=== PATIENT | female | born 1950 | race African-American/Black ===

== ENCOUNTER 2021-06-05 18:46 | Observation (INO) | payer OTHER, SELFPAY ==
[2021-06-05] VITALS (7 sets, daily range): BP systolic 151–173; BP diastolic 67–100; PULSE 90–103; RESP 21–38; TEMP 36; O2SAT 92–99
--- NOTE | ~2021-06-05 | CT_ITS ---
EXAMINATION: CTA chest PE protocol DATE: 06/05/2021 20:55 INDICATION: Shortness of breath and hypoxia TECHNIQUE: Computed tomography (CT) pulmonary angiogram of the chest was performed with 100 mL Omnipa que-350 intravenous contrast. Additional 3D reconstructions utilizing coronal maximum intensity proje ction (MIP) were performed. Automated exposure control and iterative reconstruction technique were em ployed. The dose-length product was 487.97 mGy-cm. COMPARISON: None FINDINGS: Excellent contrast opacification of the pulmonary arteries. There is mild streak artifact from dense contrast in the superior vena cava and right atrium. Moderate scattered respiratory motion artifact m ost prominent at the lung bases where it decreases sensitivity and specificity in the segmental and s ubsegmental pulmonary arteries. No definitive pulmonary embolism identified. There is a moderate-size d posterior layering left pleural effusion with dependent compressive atelectasis in the left lower l obe and additional scattered discoid atelectasis in the left lower lobe and lingula. No other opaciti es to suggest pneumonia. No pulmonary edema or pneumothorax. Borderline heart size. No pericardial ef fusion. Thoracic aorta is normal in caliber with no dissection. Calcified left hilar and mediastinal lymph nodes along with multiple splenic and hepatic calcifications, all consistent with old granuloma tous disease. No pathologically enlarged thoracic lymphadenopathy. Small sliding-type hiatal hernia. Moderate amount of ascites and prominent mesenteric edema throughout the visualized upper abdomen. A couple 3 mm nonobstructing stones in a middle calyx of the right kidney. 1 cm indeterminate sclerotic lesion at T10. Smaller and more densely sclerotic likely bone island at the right glenoid neck. IMPRESSION: 1. No pulmonary embolism. Sensitivity moderately decreased in some of the basilar segmental and subse gmental pulmonary arteries due to respiratory motion. 2. Moderate-sized left pleural effusion with associated atelectasis in the left lower lobe and lingul a. 3. Mesenteric edema and moderate amount of ascites in the upper abdomen. 4. Nonobstructing right nephrolithiasis. 5. Small sliding-type hiatal hernia. 6. Instrumented 1 cm sclerotic lesion at T10 which does raise some concern for metastatic disease alt angela no other suspicious sclerotic lesions are identified. Consider further evaluation with bone sca n particularly if there is history of prior malignancy. Reviewed, dictated and finalized at location A. CREWMAN IMPRESSION: 1. No pulmonary embolism. Sensitivity moderately decreased in some of the basil ar segmental and subsegmental pulmonary arteries due to respiratory motion. 2. Moderate-sized left pleural effusion with associated atelectasis in the left lower lobe and lingula. 3. Mesenteric edema and moderate amount of ascites in the upper abdomen. 4. Nonobstructing right nephrolithiasis. 5. Small sliding-type hiatal hernia. 6. Instrumented 1 cm sclerotic lesion at T10 which does raise some concern for metastatic disease although no other suspicious sclerotic lesions are identifie d. Consider further evaluation with bone scan particularly if there is history of prior malignancy.
--- NOTE | ~2021-06-05 | XR_ITS ---
EXAMINATION: XR chest 1V portable DATE: 06/05/2021 19:29 INDICATION: Weakness and shortness of breath TECHNIQUE: frontal view of the chest was obtained. COMPARISON: None FINDINGS: Small lung volumes. Asymmetric increased lucency of the right lung relative to the left. Streaky opac ities at the left lower lung zone. No pneumothorax or definitive pleural effusion. Heart size is norm al. Nonspecific widening of the central mediastinum. Surgical clips projecting over the left breast. The cardiomediastinal silhouette is normal. Sclerotic bone island at the neck of the right glenoid. IMPRESSION: 1. Asymmetric lucency of the right lung relative to the left. This could be due to asymmetric positio n of the overlying breasts, posterior layering small left pleural effusion or right-sided pulmonary e mboli. 2. Enlargement of the central mediastinum which could be due to tortuous or aneurysmal thoracic aorta , enlargement of the central pulmonary arteries or lymphadenopathy. Consider contrast-enhanced chest CT for further evaluation of both this as well as the asymmetric lucency. 3. Left basilar opacities which could represent atelectasis and/or pneumonia. Reviewed, dictated and finalized at location A. ON RAILS ENGINEER IMPRESSION: 1. Asymmetric lucency of the right lung relative to the left. This could be due to asymmetric position of the overlying breasts, posterior layering small left pleural effusion or right-sided pulmonary emboli. 2. Enlargement of the central mediastinum which could be due to tortuous or ane urysmal thoracic aorta, enlargement of the central pulmonary arteries or lympha denopathy. Consider contrast-enhanced chest CT for further evaluation of both t his as well as the asymmetric lucency. 3. Left basilar opacities which could represent atelectasis and/or pneumonia.
--- NOTE | 2021-06-05 18:48 | ECG_ITS ---
Measurements Intervals [place] Rate: 105 P: 40 [place]: 127 QRS: -17 QRSD: 78 T: 24 QT: 347 QTc: 459 Interpretive Statements SINUS TACHYCARDIA WITH OCCASIONAL SUPRAVENTRICULAR PREMATURE COMPLEXES POSSIBLE LEFT ATRIAL ENLARGEMENT [-0.1mV P-WAVE IN V1/V2] LOW QRS VOLTAGE IN PRECORDIAL LEADS [QRS DEFLECTION < 1.0 mV IN CHEST LEADS] NONSPECIFIC T-WAVE ABNORMALITY ABNORMAL ECG NO PREVIOUS ECG AVAILABLE FOR COMPARISON Electronically Signed On 06-06-2021 7:11:19 MARINE UNDERWRITER by Galen Robles M.D.
--- NOTE | 2021-06-05 19:30 | PC.NURSE ---
Patient had a BM. Patient cleaned. Bed linen changed.
--- NOTE | 2021-06-05 19:36 | ED.SOB ---
HPI - SOB/Dyspnea General Chief Complaint: Shortness of Breath/Dyspnea <Chance Jung MD - Last Filed: 06/05/21 22:19> Stated Complaint: KIRK, GEN WEAKNESS <Chance Jung MD - Last Filed: 06/05/21 22:19> Time Seen by Provider: 06/05/21 19:19 <Chance Jung MD - Last Filed: 06/05/21 22:19> Source: patient and family <Chance Jung MD - Last Filed: 06/05/21 22:19> Mode of arrival: EMS <Chance Jung MD - Last Filed: 06/05/21 22:19> Limitations: no limitations <Chance Jung MD - Last Filed: 06/05/21 22:19> History of Present Illness HPI Narrative: Patient is a 71-year-old female brought in by EMS from home due to increased work of breathing and generalized weakness. According to the sister, patient was too weak to stand up and ambulate and also noticed her to have an increased work of breathing and that is why they called 911. Patient has been having increased abdominal distention for the past few weeks and was seen at [facility] was admitted, had paracentesis done and a full work-up , diagnosed with peritoneal carcinomatosis, was recently discharge this past week, referred to [facility] for possible endometrial cancer, has an appointment in 2 weeks to have an endometrial biopsy. According to EMS her oxygen saturation was 91% when they arrived but upon arrival to the emergency room patient's oxygen saturation was 96% on room air. <Chance Jung MD - Last Filed: 06/05/21 22:19> Related Data Home Medications: Home Medications Medication Instructions Recorded Confirmed azelastine 137 mcg EACH NARE BID 06/05/21 calcium carbonate-vitamin D3 1 tablet PO BID 06/05/21 [Calcium 500 + D] furosemide 20 mg PO DAILY 06/05/21 <Chance Jung MD - Last Filed: 06/05/21 22:19> Allergies/Adverse Reactions: Allergies Allergy/AdvReac Type Severity Reaction Status Date / Time amoxicillin Allergy Unknown Verified 06/05/21 20:24 ampicillin Allergy Unknown Verified 06/05/21 20:24 iodine Allergy Unknown Verified 06/05/21 20:24 meperidine Allergy Itching Verified 06/05/21 20:24 shellfish derived Allergy Unknown Verified 06/05/21 20:24 <Chance Jung MD - Last Filed: 06/05/21 22:19> Review of Systems Review of Systems: All systems reviewed & are unremarkable except as noted in HPI and below <Chance Jung MD - Last Filed: 06/05/21 22:19> Constitutional: Constitutional: Denies body ache(s), Denies chills, Denies excessive sweating, Denies fatigue, Denies fever(s), Denies headache(s), Denies lethargy, Denies malaise, Denies weakness and Denies weight loss <Chance Jung MD - Last Filed: 06/05/21 22:19> Eyes: Eyes: Denies blurry vision, Denies change in vision and Denies loss of vision <Chance Jung MD - Last Filed: 06/05/21 22:19> ENT: Denies dizziness, Denies ear discharge, Denies headache(s), Denies lip swelling, Denies epistaxis, Denies nasal congestion, Denies neck pain, Denies throat swelling and Denies tongue swelling <Chance Jung MD - Last Filed: 06/05/21 22:19> Cardiovascular: Cardiovascular: Denies chest pain, Denies chest pain at rest, Denies chest pain with activity, Denies diaphoresis, Denies rapid heart rate, Denies edema, Denies irregular heart rhythm, Denies lightheadedness and Denies palpitations <Chance Jung MD - Last Filed: 06/05/21 22:19> Respiratory: Respiratory: Denies chest congestion, Denies cough and Denies hemoptysis <Chance Jung MD - Last Filed: 06/05/21 22:19> Gastrointestinal: Gastrointestinal: Denies abdominal pain, Denies melena, Denies hematochezia, Denies diarrhea, Denies nausea, Denies vomiting and Denies hematemesis <Chance Jung MD - Last Filed: 06/05/21 22:19> Musculoskeletal: Musculoskeletal: Denies abnormal gait, Denies deformity, Denies joint swelling, Denies limited range of motion, Denies neck pain and Denies numbness <Chance Jung MD - [place]
[2021-06-05 19:39] LABS: Basophils Absolute Auto 0.1 K/mm3 (0.0-0.1); Basophils Percent Auto 0.3 % (0.2-1.2); Eosinophils Percent Auto 0.1 % (0-4.4); Hemoglobin 11.9 g/dL (12.0-15.0); Immature Granulocyte Absolute 0.78 K/mm3 (0.00-0.031); Immature Granulocyte Percent A 4.1 % (0-0.5); Lymphocytes Absolute Auto 0.94 K/mm3 (0.9-3.2); Lymphocytes Percent Auto 4.9 % (18.3-44.2); Mean Corpuscular HGB Conc 32.2 g/dl (32-36); Mean Corpuscular Hemoglobin 27.8 pg (26-34); Mean Corpuscular Volume 86.4 fl (80-100); Mean Platelet Volume 9.5 fl (7.4-10.4); Monocytes Absolute Auto 0.8 K/mm3 (0.1-0.6); Monocytes Percent Auto 4.3 % (2.6-8.5); Neutrophils Absolute Auto 16.4 K/mm3 (1.3-6.7); Neutrophils Percent Auto 86.3 % (45.5-73.1); Nucleated Red Blood Cells Absolute Auto 0.1 K/mm3 (0.0-0.012); Nucleated Red Blood Cells Perc 0.6 % (0.0-0.2); Platelet Count Result 324 k/mm3 (150-375); Red Blood Count 4.28 M/mm3 (4.2-5.4); Red Cell Distribution Width 14.7 % (11.5-14.5)
[2021-06-05] MEDS: ALBUTEROL SULFATE NEB 2.5 MG/0.5 ML INH 5 MG INHALATION (19:41)
[2021-06-05] MEDS: IPRATROPIUM BR 0.02% INH SOLN 0.5 MG/2.5 ML VIAL INHALATION (19:41)
--- NOTE | 2021-06-05 19:45 | PC.NURSE ---
CT called stating they needed a 20g IV for CTA. 2 unsuccessful IV attempts by me. Will get assistance and follow up. CT and EDP aware of delay.
[2021-06-05 19:58] LABS: Base Excess ABG -2.3 mEq/l (+/-2.0); Carboxyhemoglobin 0.5 % THb (0-2.0); Fractional Inspired Oxygen 21 %; HCO3 ABG 19.2 mEq/l (22.0-26.0); Methemoglobin ABG 0.2 %THb (0-1.5); Oxygen Content ABG 16.4 %vol (16.0-22.0); Oxygen Saturation ABG 97.2 % (95.0-100.0); Oxyhemoglobin 95.1 % THb (90.0-100.0); PCO2 ABG 24.4 mmHg (35.0-45.0); PO2 ABG 82.5 mmHg (80.0-100.0); PO2 FiO2 Ratio Arterial Blood 3.93 %; Reduced Hemoglobin 4.2 %THb (0-5.0); Total Hemoglobin 12.2 g/dL (12.0-18.0)
[2021-06-05 20:00] LABS: Device ROOM AIR; Modified Allen's Test Pass; Site Drawn LEFT RADIAL; pH ABG 7.514 (7.350-7.450)
[2021-06-05 20:12] LABS: INR 1.2; Prothrombin Time 14.7 Seconds (11.1-14.7)
[2021-06-05 20:13] LABS: Partial Thromboplastin Time 24.9 SECONDS (22.3-36.8)
[2021-06-05 20:15] LABS: Anion Gap 13 mmol/L (8-16); Blood Urea Nitrogen 58 mg/dL (7-17); Calcium 8.4 mg/dL (8.4-10.2); Carbon Dioxide 18 mmol/L (22-30); Chloride 98 mmol/L (98-107); Estimated CRCL calculation 29 ml/min; Estimated Glomerular Filt Rate 36; Glucose 104 mg/dL (65-110); Potassium 5.1 mmol/L (3.4-5.0); Sodium 129 mmol/L (137-145)
[2021-06-05 20:19] LABS: Lactic Acid Reflex 5.5 mmol/L (0.7-2.1)
[2021-06-05 20:26] LABS: NT Pro B Type Natriuretic Pept 1520 pg/mL (5-100); Troponin I 0.016 ng/mL (0.000-0.034)
--- NOTE | 2021-06-05 20:44 | PHAR ---
CALLED APPLICATIONS TRAINER AND AWARE OF ALLERGY
[2021-06-05 21:10] LABS: D Dimer > 20.00 ug/mL (<0.48)
[2021-06-05] MEDS: methylPREDNISolone SOD SUCC 125 MG VIAL IV PUSH (21:20)
[2021-06-05] MEDS: SODIUM CHLORIDE 0.9% IV 1,000 ML 90 ML IV CONT (21:32)
[2021-06-05 22:54] LABS: Reflex Lactic Acid Yes or No Add Lactic
--- NOTE | 2021-06-05 23:00 | PC.NURSE ---
Patient placed on bedpan to collect urine. Patient voided and had a BM. Liquid stool. Unable to send urine sample as it was all mixed together. Patient refusing straight cath to collect urine. Will attempt again.
--- NOTE | 2021-06-05 23:13 | PC.NURSE ---
Spoke to Jesus at [facility] transfer line. Patient has been accepted to [facility] (Dr. Cruz, accepting physician). Patient will be placed on waitlist until bed becomes available. Patient will remain on waitlist even if admitted to this hospital.
--- NOTE | 2021-06-05 23:14 | PC.NURSE ---
Spoke to Joanie from [facility] Transfer Center at this time. Patient accepted but no beds are available until possibly the weekend. Will follow up.
[2021-06-05 23:35] LABS: Add Urine Microscopic? YES; Amorphous Sediment Urine Few; Appearance Urine Cloudy (Clear); Bacteria Urine Trace /hpf; Bilirubin Urine Negative (Negative); Blood Urine 3+ (Negative); Budding Yeast Urine Present /hpf; Color Urine Amber (Yellow); Glucose Urine UA Negative (Negative); Hyaline Casts Urine 20-29 /lpf; Ketones Urine Negative (Negative); Leukocyte Esterase Ur 2+ LEU/UL (Negative); Mucus Urine Rare /lpf; Nitrate Urine Negative (Negative); Protein Urine 1+ mg/dL (Negative); RBC Urine >75 /hpf (0-2); Squamous Epithelial Cell Urine Few /hpf (Few); Urobilinogen Urine Negative mg/dL (<2.0); WBC Urine 31-50 /hpf
[2021-06-05 23:37] LABS: Specific Grav Ur 1.034 (1.001-1.035)
[2021-06-06] VITALS: BP 197/104; PULSE 98; RESP 24; O2SAT 96
[2021-06-06 00:12] LABS: SARS-CoV-2 RNA PCR Negative
[2021-06-06 00:36] LABS: Alanine Aminotransferase 54 U/L (4-35); Albumin Level 2.9 g/dL (3.5-5.1); Alkaline Phosphatase 64 U/L (38-126); Aspartate Amino Transferase 160 U/L (14-36); Bilirubin,Total 0.6 mg/dL (0.2-1.3)
[2021-06-06 01:35] VITALS: BP 167/94; PULSE 100; RESP 20; O2SAT 98
[2021-06-06] MEDS: SODIUM CHLORIDE 0.9% IV 1,000 ML 999 ML IV CONT (01:40)
--- NOTE | 2021-06-06 01:55 | PC.NURSE ---
Informed [facility] that patient's Covid results are negative.
[2021-06-06 02:27] VITALS: BP 170/86; PULSE 100; RESP 20; TEMP 36.9; O2SAT 99
--- NOTE | 2021-06-06 02:59 | ADMGEN ---
This patient, Emi Betts, was admitted to Medical Room 340-01. Patient/family oriented to hospital policies and general routines including ID bracelet, bed and alarms, visiting hours, pain management, procedures, bathroom and other care routines, personal items, smoking policy, room service/diet, and visiting hours. Information on how to activate the Rapid Response Team has been discussed. Patient/Family are encouraged to report perceived risks to care and to ask questions if they do not understand what they are told or what they should do.
[2021-06-06 04:00] VITALS: BP 158/86; PULSE 110; PULSE 114; RESP 20; TEMP 36.9; O2SAT 96
--- NOTE | 2021-06-06 07:59 | PM.IMHP ---
H&P: HPI History of Present Illness Date/Time: 06/06/21 07:59 Chief Complaint: Weakness and shortness of breath Narrative: 71-year-old female with recent diagnosis of carcinomatosis due to suspected endometrial cancer who presented to the ER after she had became weak and slid to the floor. She was unable to get up off the floor. Her sister found the patient noticed that she was having increased work of breathing and called EMS. The patient has been having abdominal distension for few weeks and was evaluated at [facility] with paracentesis and a full workup. As when she was diagnosed with peritoneal carcinomatosis and was recently discharged within this past week. She was referred to [facility] for follow-up with Oncology but the appointment isn't for another 2 weeks. The patient's oxygen saturations on EMS arrival dural were 91% but she was 96% on room air when she arrived to the ER. She was markedly tachypneic and mildly tachycardic. The patient had denied any chest pain. She had resolution of her shortness of breath while she was in the ER. When she was in the ER the patient was adamant that she laid flat on her back. She denied having any nausea or vomiting. She was not having any abdominal pain but stated that her abdomen was tight. Initial labs demonstrated leukocytosis, severe lactic acidosis, D-dimer greater than 20, respiratory alkalosis and elevated transaminases. Her UA was suggestive of possible UTI. The patient was afebrile in the ER. The above information was obtained from ER records as my encounter with the patient occurred when a rapid response was called followed immediately by a diann vargas. When the patient had arrived to the medical floor she was again insisting on laying flat in bed. Nursing staff had turned the patient to clean her up and when they rolled her back the patient was a staring into space. A rapid response was called but after further evaluation the patient has noted that she was having agonal respirations and no palpable pulse. Please see code blue report for remainder of history. Review of Systems Review of Systems: ROS unobtainable: Yes unobtainable due to medical condition [facility] Past Medical History Medical History (Updated 06/06/21 @ 08:25 by Leann Mcdaniel DO) Breast cancer Hyperlipidemia Peritoneal carcinomatosis Surgical History Surgical History (Updated 06/06/21 @ 08:19 by Leann Mcdaniel DO) Surgical history unknown Family History Family History Mother Acute myocardial infarction Diabetes mellitus Hypertension Sibling Diabetes mellitus Social History Social History Smoking status: Never smoker Alcohol intake: never Substance use: never Spiritual care concerns: No Meds Home Medications and Allergies Home Medications Medication Instructions Recorded Confirmed Type azelastine 137 mcg EACH NARE BID PRN 06/05/21 06/06/21 History calcium carbonate-vitamin D3 1 tablet PO BID 06/05/21 06/06/21 History [Calcium 500 + D] furosemide 20 mg PO DAILY 06/05/21 06/06/21 History Allergies Allergy/AdvReac Type Severity Reaction Status Date / Time amoxicillin Allergy Unknown Verified 06/06/21 05:01 ampicillin Allergy Unknown Verified 06/06/21 05:01 iodine Allergy Unknown Verified 06/06/21 05:01 meperidine Allergy Itching Verified 06/06/21 05:02 shellfish derived Allergy Unknown Verified 06/06/21 05:02 Vital Signs Vital Signs - 24 hr 06/05/21 18:48 06/05/21 19:30 06/05/21 19:57 Temperature 96.8 F L Pulse Rate 102 H 101 H Respiratory Rate 38 H 26 H 21 H Blood Pressure 165/88 H Pulse Oximetry 99 06/05/21 20:06 06/05/21 20:28 06/05/21 21:14 Temperature Pulse Rate 103 H 100 101 H Respiratory Rate 26 H 30 H 30 H Blood Pressure 159/67 H 151/100 H Pulse Oximetry 98 92 06/05/21 23:30 06/06/21 00:00 06/06/21 01
--- NOTE | 2021-06-06 08:29 | PDCODEBLUE ---
Code Blue Note Code Blue Note Time Arrived at Code Blue: 0612 Initial Rhythm on Arrival: PEA Airway Management: Pt intubated during resuscitation Chest Compressions: In process on arrival to bedside Result of Code Blue: Pt Cardiac Rhythm Post Code: Asystole Code Blue Summary: The patient was being cleaned up by nursing staff when she went unresponsive. Patient was in PE a on telemetry and with no palpable pulse. CPR was initiated. The patient received a total of 9 amps of epinephrine and 2 amps of sodium bicarb. The patient was intubated during the course of resuscitation with ET tube at 27 cm at the teeth. Upon placement 82 patient had insert return of large amounts of gastric contents. ET tube was removed and replaced with use of glide scope. There was color change on end-tidal CO2 monitor but again ET tube was filled with gastric contents. OG was attempted placed during resuscitation without success. Patient did have return of perfusing blood pressure and pulse twice briefly during the course of resuscitation but each episode lasted no more than 1.5 minutes. After repeated resuscitation efforts patient remained in asystole and cessation efforts or halted at 6:39 a.m.. Patient due to aspiration of vomitus resulting in cardiopulmonary arrest.
--- NOTE | 2021-06-06 08:43 | P.DN_ITS ---
Discharge Summary Date and Time Date of : 06/06/21 Time of : 06:39 Provider Pronounced By: Dr. Mcdaniel Probable Cause of Probable Cause of : Aspiration of vomitus resulting in cardiopulmonary arrest Due to peritoneal carcinomatosis UTI with severe sepsis Acute renal failure Summary Hospital Course: Please see code blue note Additional Data Confirmation of as documented by pronouncing clinician: Pupillary Reflex, Palpable Pulses, Response to Stimuli, Heart Tones and Breath Sounds Family: contacted Name of Provider Notified: Hospitalist at bedside Was code activated?: Yes Provider Requests Autopsy: No Family Requests Autopsy: Yes Devulcanizer Head Notified: Yes Date [facility] Notified of : 06/06/21 Time [facility] Notified of : 07:08 Advance directives: No Hospice patient?: No
== END 2021-06-06 06:39 | disposition expired ==
LOC: ANHED 06-06 02:00 → ANH3MED 06-06 02:01
PROVIDERS: Emergency Medicine; Admitting Provider Internal Medicine; Emergency Provider Emergency Medicine; Visit Provider Internal Medicine
DX: I46.9 Cardiac arrest, cause unspecified (principal); T17.910A Gastric contents in respiratory tract, part unspecified causing asphyxiation, initial encounter; R65.20 Severe sepsis without septic shock; C76.2 Malignant neoplasm of abdomen; R74.8 Abnormal levels of other serum enzymes; E87.2 Acidosis; N17.9 Acute kidney failure, unspecified; N39.0 Urinary tract infection, site not specified; J90 Pleural effusion, not elsewhere classified; R06.02 Shortness of breath; R60.0 Localized edema; I10 Essential (primary) hypertension; E11.9 Type 2 diabetes mellitus without complications; E78.5 Hyperlipidemia, unspecified; E66.9 Obesity, unspecified; Z68.39 Body mass index [BMI] 39.0-39.9, adult; Z85.3 Personal history of malignant neoplasm of breast; Z20.822 Contact with and (suspected) exposure to COVID-19
CPT/HCPCS: 31500; 36415; 36600; 71045; 71275; 80048; 80076; 81001; 82375; 82805; 83050; 83605; 83880; 84484; 85025; 85380; 85610; 85730; 87040; 87086; 87088; 88300; 92950; 93005; 94640; 96361; 96365; 96375; 99285; C9803; G0378; J0171; J0696; J2930; J7030; Q9967; U0003; U0005